=== PATIENT | male | born 1970 | race Caucasian/White ===

== ENCOUNTER 2020-12-18 13:39 | Emergency (ER) | payer BC, OTHER ==
[~2020-12-18] VITALS: Ht 177.8 cm; Wt 144.2 kg
--- NOTE | 2020-12-18 14:49 | NUR ---
patient vitals rechecked @[id number]
--- NOTE | 2020-12-18 15:22 | NUR ---
PT AMBULATORY TO ROOM, PT CHANGED INTO GOWN. MONITORS IN PLACE. PT C/O RASH X3 WEEKS. PT STATES RASH ITCHES/GOLDSTEIN AND HOT TO TOUCH. PT STATES SOME AREAS WILL WEEP. PT ON ANTIBX FOR 3X WKS. FAMILY AT BS. CALL LIGHT WITHIN REACH
[2020-12-18 15:23] LABS: BASOPHILS % (AUTO) 1 % (0-1); EOSINOPHILS % (AUTO) 3 % (1-7); LYMPHOCYTES % (AUTO) 22 % (22-44); MEAN CORPUSCULAR HEMOGLOBIN 31.9 pg (27.5-34.5); MEAN CORPUSCULAR HGB CONC 34.6 g/dL (33.2-36.2); MEAN PLATELET VOLUME 7.7 fL (7.4-10.4); MONOCYTES % (AUTO) 7 % (2-9); NEUTROPHILS % (AUTO) 68 % (42-75); PLATELET COUNT 321 x10^3/uL (130-400); RED BLOOD COUNT 5.01 x10^6/uL (4.38-5.82); RED CELL DISTRIBUTION WIDTH 14.6 % (9.4-14.8)
[2020-12-18 15:24] LABS: ALANINE AMINOTRANSFERASE 46 U/L (12-78); ALBUMIN 3.7 g/dL (3.4-5.0); ANION GAP 5 mmol/L (5-15); CALCIUM 9.3 mg/dL (8.5-10.1); CHLORIDE 103 mmol/L (98-107); CREATININE 1.14 mg/dL (0.7-1.3)
[2020-12-18 15:27] LABS: ALKALINE PHOSPHATASE 62 U/L (45-117); BILIRUBIN,TOTAL 0.3 mg/dL (0.2-1.0)
--- NOTE | 2020-12-18 15:34 | NUR ---
PA AT BS
--- NOTE | 2020-12-18 15:51 | NUR ---
PT SITTING ON FAMILY LAUREN AT BS. NADN/VSS. CALL LIGHT WITHIN REACH. NO NEEDS AT THIS TIME
--- NOTE | 2020-12-18 17:02 | NUR ---
PT SITTING ON SILVER AGUILAR/LEONID. CALL LIGHT WITHIN REACH. FAMILY AT BS. NO NEEDS AT THIS TIME
[2020-12-18 17:12] LABS: HCT (SEDRATE) 46.2 % (39.2-51.8)
[2020-12-18 17:53] VITALS: BP 138/79
--- NOTE | 2020-12-18 18:31 | NUR ---
Patient given discharge instructions and they have confirmed that they understand the instructions. Patient ambulatory with steady gait.
== END 2020-12-18 18:32 | disposition home or self-care (01) ==
LOC: ED 16:19
DX: L40.4 Guttate psoriasis (principal); R21 Rash and other nonspecific skin eruption; M19.049 Primary osteoarthritis, unspecified hand; M16.10 Unilateral primary osteoarthritis, unspecified hip
CPT/HCPCS: 36415; 80053; 85025; 85651; 99285